=== PATIENT | male | born 1965 | race African-American/Black ===

== ENCOUNTER 2018-05-23 09:36 | Inpatient (IN) | payer OTHER ==
[2018-05-23 09:50] VITALS: BMI 24.6
--- NOTE | 2018-05-23 14:11 | HP ---
CIWA Score - CIWA Score Nausea/Vomitin-Mild Nausea/No Vomiting Muscle Tremors: 3 Anxiety: 3 Agitation: 2 Paroxysmal Sweats: 4-Forehead w/Sweat Beads Orientation: 2-Disoriented Date<2 days Tacttile Disturbances: 0-None Auditory Disturbances: 0-None Visual Disturbances: 0-None Headache: 0-None Present CIWA-Ar Total Score: 15 Admission ROS S - HPI Chief Complaint: Here for alcohol withdrawal. I need to detox. Allergies/Adverse Reactions: Allergies Allergy/AdvReac Type Severity Reaction Status Date / Time mayonnaise Allergy Verified 05/23/18 12:35 No Known Drug Allergies Allergy Verified 05/23/18 12:35 Seafood Allergy Uncoded 05/23/18 12:35 History of Present Illness: 52 yom w/ hx alcohol use since age 12. Currently drinks 6-16 oz beers daily and 3 x/wk 1/2 pt vodka. Hx. HTN, depression, stress, asthma. Non-compliant w/ medications. Longest period of time of sobriety was 7 years. Drinking continuously now for past 2 years. Walks w/ a cane for knee pain r/t recent fall. Abrasions on face r/t recent fall on 05/19/18. - Ebola screening Have you traveled outside of the country in the last 21 days: No Have you had contact with anyone from an Ebola affected area: No Have you been sick,other than usual withdrawal symptoms: No Do you have a fever: Yes - Review of Systems Constitutional: Chills, Diaphoresis EENT: reports: Nose Bleeding (Fall on 05/19/18 and fractured nose. No nose bleed at this time.), Dental Problems (Poor teeth. Front tooth pain r/t fall. Able to chew and swallow w/o difficulty.), Other (States recently told had glaucoma. Called home and the eye drops are artificial tears.) Respiratory: reports: Other (Hx asthma - no exacerbation in over 1 year. States taking asthma inhaler daily.) Cardiac: reports: Chest Pain (Chest pain - intermittent unrelated to activity.) , Irregular Heart Rate (Heart beats fast and has chest pain w/ SOB. Rest and resolves on own.) GI: reports: Nausea (mild r/t withdrawal) : reports: No Symptoms Reported Musculoskeletal: reports: Joint Pain (Knee pain sharpt r/t to standing for long periods and recent fall. Pain is worse in mornings. Uses a cane.) Integumentary: reports: Lesions ((R) arm - seen and on mupirocin;), Other ( Facial abrasions r/t fall on 05/19/18. Seen in ER.) Neuro: reports: Tremors, Unsteady Gait Endocrine: reports: No Symptoms Reported Hematology: reports: No Symptoms Reported Psychiatric: reports: Agitated, Anxious, Depressed Other Systems: Reviewed and Negative Patient History - Patient Medical History Hx Asthma: Yes (ON MED) Hx Chronic Obstructive Pulmonary Disease (COPD): No Hx Cancer: No Hx Cardiac Disorders: Yes (IRREGULAR HR) Hx Congestive Heart Failure: No Hx Hypertension: Yes (ON MEDICATION, NON-COMPLIANT) Hx Hypercholesterolemia: No Hx Pacemaker: No HX Cerebrovascular Accident: No Hx Seizures: No Hx Dementia: No Hx Diabetes: No Hx Gastrointestinal Disorders: No Hx Liver Disease: Yes (has inflammed liver r/t alcohol use. ) Hx Genitourinary Disorders: No Hx Sexually Transmitted Disorders: No Hx Renal Disease (ESRD): No Hx Thyroid Disease: No Hx Human Immunodeficiency Virus (HIV): No Hx Hepatitis C: No Hx Depression: Yes (on meds. Denies suicide or violent ideation.) Hx Suicide Attempt: No Hx Bipolar Disorder: No Hx Schizophrenia: No - Patient Surgical History Past Surgical History: Yes Hx Neurologic Surgery: No Hx Cataract Extraction: No Hx Cardiac Surgery: No Hx Lung Surgery: No Hx Breast Surgery: No Hx Breast Biopsy: No Hx Abdominal Surgery: No Hx Appendectomy: No Hx Cholecystectomy: No Hx Genitourinary Surgery: No Hx Section: No Hx Orthopedic Surgery: Yes (Bone graft from (R) hip to (R) wrist) Anesthesia Reaction: Yes - PPD History Previous Implant?: Yes Documented Results: Negative w/proof PPD to be Administered?: Yes - Smoking Cessation Smoking history: Current every day smoker Have you smoked in the past 12 months: Yes Aproximately how many cigarettes per day: 7 Hx Chewing Tobacco Use: No Initiated information on smoking cessation: Yes 'Breaking Loose' booklet given: 05/23/18 - Substance & Tx. History Hx Alcohol Use: Yes Hx Substance Use: Yes Substance Use Type: Alcohol Hx Substance Use Treatment: Yes (detox and [facility] rehab) - Substances Abused Alcohol Route: Oral Frequency: Daily Amount used: 1 6 PACK OF BEER, 1/2 PINT OF VODKA Age of first use: 12 Date of Last Use: 05/23/18 Admission Physical Exam S - Vital Signs Vital Signs: Vital Signs - 24 hr 05/23/18 09:47 Temperature 98 F Pulse Rate 118 H Respiratory 19 Rate Blood Pressure 129/86 - Physical General Appearance: Yes: Mild Distress HEENTM: Yes: EOMI, Hearing grossly Normal, Normal Voice, MOHAN, Other ( Superficial abrasions on nose, cheek and forehead w/ new scabbing.) Respiratory: Yes: Chest Non-Tender, Lungs Clear, Normal Breath Sounds Neck: Yes: No masses,lesions,Nodules, Supple Breast: Yes: Breast Exam Deferred Cardiology: Yes: Regular Rhythm, S1, S2, Tachycardia (Denies chest pain/SOB) Abdominal: Yes: Normal Bowel Sounds, Non Tender, Soft Genitourinary: Yes: Within Normal Limits Back: Yes: Normal Inspection Musculoskeletal: Yes: Joint Stiffness ((R) knee), Other (Gait unsteady) Extremities: Yes: Normal Capillary Refill, Normal Inspection, Normal Range of Motion Neurological: Yes: lacquer sizer II-XII NML intact, Motor Strength 5/5 Integumentary: Yes: Other (small, paplular lesion (R) forearm.) Lymphatic: Yes: Within Normal Limits - Diagnostic (1) Alcohol dependence with uncomplicated withdrawal Current Visit: Yes Status: Acute (2) Abrasion of face and extremities Current Visit: Yes Status: Acute Qualifiers: Encounter type: subsequent encounter Laterality: unspecified laterality Qualified Code(s): S00.81XD - Abrasion of other part of head, subsequent encounter; S40.819D - Abrasion of unspecified upper arm, subsequent encounter; S80.819D - Abrasion, unspecified lower leg, subsequent encounter (3) Unsteady gait Current Visit: Yes Status: Chronic (4) Hypertension Current Visit: Yes Status: Acute Qualifiers: Hypertension type: essential hypertension Qualified Code(s): I10 - Essential (primary) hypertension (5) Asthma Current Visit: Yes Status: Chronic Qualifiers: Asthma severity: unspecified severity Asthma persistence: intermittent Asthma complication type: unspecified Qualified Code(s): J45.20 - Mild intermittent asthma, uncomplicated (6) Nicotine dependence Current Visit: Yes Status: Acute Qualifiers: Nicotine product type: cigarettes Substance use status: in withdrawal Qualified Code(s): F17.213 - Nicotine dependence, cigarettes, with withdrawal Cleared for Admission [facility] - Detox or Rehab [facility] Level of Care: Medically Managed Detox Regimen/Protocol: Librium [facility] Breath Alcohol Content Breath Alcohol Content: 0.227 Urine Drug Screen - Results Drug Screen Negative: No Urine Drug Screen Results: BZO-Benzodiazepines
[2018-05-23] MEDS ORDERED: P-EPHED 60MG/TRIPROLIDI 2.5MG TABLET PO PRN (14:22)
[2018-05-23] MEDS ORDERED: chlordiazePOXIDE HCL 25 MG CAPSULE PO PRN (14:22)
[2018-05-23] MEDS ORDERED: LOPERAMIDE HCL 2 MG CAPSULE PO PRN (14:22)
[2018-05-23] MEDS ORDERED: hydrOXYzine PAMOATE 50 MG CAPSULE (FP) PO PRN (14:22)
[2018-05-23] MEDS ORDERED: ACETAMINOPHEN 325 MG TABLET (FP) PO PRN (14:22)
[2018-05-23] MEDS ORDERED: MENTHOL/PHENOL 1 EACH UD MM PRN (14:22)
[2018-05-23] MEDS ORDERED: MAGNESIUM HYDROX 2400MG/30ML ORAL SUSPENSION 30 ML CUP PO PRN (14:22)
[2018-05-23] MEDS ORDERED: guaiFENesin/D-METHORPHAN HB 10 ML UNIT-DOSE CUPS PO PRN (14:22)
[2018-05-23] MEDS ORDERED: MAG HYDROX/AL HYDROX/SIMETH 30 ML UNIT-DOSE CUP PO PRN (14:22)
[2018-05-23] MEDS ORDERED: MAGNESIUM CITRATE 300 ML BOTTLE PO PRN (14:22)
[2018-05-23] MEDS ORDERED: NICOTINE POLACRILEX 2 MG GUM BC PRN (14:22)
[2018-05-23] MEDS ORDERED: ALBUTEROL SO4 0.083% IH SOL 2.5 MG/3 ML VIAL.NEB. NEB PRN (16:04)
[2018-05-23 19:00] LABS: URINE APPEARANCE CLEAR; URINE BILIRUBIN NEGATIVE (<2.0 mg/dL); URINE COLOR YELLOW; URINE GLUCOSE (UA) NEGATIVE (NEGATIVE); URINE KETONE NEGATIVE (NEGATIVE); URINE LEUK ESTERASE NEGATIVE (NEGATIVE); URINE NITRITE NEGATIVE (NEGATIVE)
[2018-05-23] MEDS ORDERED: MELATONIN 5 MG TABLETS PO PRN (22:00)
[2018-05-23 22:13] LABS: URINE PROTEIN 1+ (NEGATIVE)
[2018-05-23 22:18] LABS: EPI CELLS RARE /HPF (FEW)
[2018-05-23 22:19] LABS: URINE MUCUS RARE
[2018-05-24] MEDS: chlordiazePOXIDE HCL 25 MG CAPSULE PO SCH ×5 (06:00→22:28)
[2018-05-24] MEDS: BACITRACIN 15 GM TUBE TOPICAL OINTMENT TP SCH ×3 (08:44→22:31)
[2018-05-24] MEDS: MUPIROCIN 2% TOPICAL OINTMENT 22 GM TUBE TP SCH ×3 (08:44→22:29)
[2018-05-24] MEDS: THIAMINE HCL 100 MG TABLET (FP) PO SCH ×2 (08:45→22:30)
--- NOTE | 2018-05-24 09:05 | CONSULT ---
[facility] Psychiatric Consult - Data Date of interview: 05/24/18 Admission source: [facility] Identifying data: 52 yom w/ hx alcohol use since age 12. Currently drinks 6-16 oz beers daily and 3 x/wk 1/2 pt vodka. Hx. HTN, depression, stress, asthma. Non -compliant w/ medications. Longest period of time of sobriety was 7 years. Drinking continuously now for past 2 years. Walks w/ a cane for knee pain r/t recent fall. Abrasions on face r/t recent fall on 05/19/18. Substance Abuse History: Smoking history: Current every day smoker. Have you smoked in the past 12 months: Yes. Aproximately how many cigarettes per day: 7. Hx Chewing Tobacco Use: No. Initiated information on smoking cessation: Yes. 'Breaking Loose' booklet given: 05/23/18. - Substance & Tx. History. Hx Alcohol Use: Yes. Hx Substance Use: Yes. Substance Use Type: Alcohol. Hx Substance Use Treatment: Yes (detox and skilled nursing rehab). - Substances Abused. Alcohol. Route: Oral. Frequency: Daily. Amount used: 1 6 PACK OF BEER, 1 /2 PINT OF VODKA. Age of first use: 12. Date of Last Use: 05/23/18 Medical History: HTN, Asthma, Face abrasiomns. Psychiatric History: Patient reports history of deprssion and anxiety, reports taking prior to admission: Remeron 30mg po qhs Physical/Sexual Abuse/Trauma History: Denies Additional Comment: Remeron 30mg po qhs Mental Status Exam - Mental Status Exam Alert and Oriented to: Person Cognitive Function: Fair Patient Appearance: Unkempt Mood: Sad Affect: Flat Patient Behavior: Sedated Speech Pattern: Delayed Voice Loudness: Mildly Loud Thought Process: Goal Oriented Thought Disorder: Being Controlled Hallucinations: Denies Suicidal Ideation: Denies Homicidal Ideation: Denies Insight/Judgement: Fair Sleep: Difficulty falling asleep Appetite: Weight loss Muscle strength/Tone: Mild Hypotonicity Gait/Station: Shuffling Additional Comments: Remeron 30mg po qhs Psychiatric Findings - Problem List ([place] 1, 2,3) (1) Drug-induced mood disorder Current Visit: Yes Status: Acute (2) Alcohol dependence with uncomplicated withdrawal Current Visit: Yes Status: Acute (3) Nicotine dependence Current Visit: Yes Status: Acute Qualifiers: Nicotine product type: cigarettes Substance use status: in withdrawal Qualified Code(s): F17.213 - Nicotine dependence, cigarettes, with withdrawal - Initial Treatment Plan Initial Treatment Plan: Remeron 30mg po qhs
[2018-05-24 09:51] LABS: HEMATOCRIT 35.1 % (35.4-49); HEMOGLOBIN 11.7 GM/dL (11.7-16.9); MCH 32.4 pg (25.7-33.7); MCHC 33.4 g/dl (32.0-35.9); MEAN PLT VOLUME 8.5 fl (7.5-11.1); PLATELET COUNT 49 K/MM3 (134-434); RBC 3.62 M/mm3 (4.00-5.60); RDW 15.4 % (11.9-15.9); WHITE BLOOD COUNT 4.1 K/mm3 (4.0-10.0)
[2018-05-24] MEDS ORDERED: PATIENT'S OWN MEDICATION (NON-FORMULARY) (Losartan/Hydrochlorothiazide [Losartan-Hctz 100- PO SCH (10:00)
[2018-05-24 10:19] LABS: CHLORIDE 102 mmol/L (98-107); POTASSIUM 3.5 mmol/L (3.5-5.1); SODIUM 140 mmol/L (136-145)
[2018-05-24 10:40] LABS: ALBUMIN 3.2 g/dl (3.4-5.0); ALK PHOS 109 U/L (45-117); ANION GAP 10 (8-16); BILIRUBIN,TOTAL 0.7 mg/dL (0.2-1.0); BLOOD UREA NITROGEN 7 mg/dL (7-18); CALCIUM 8.4 mg/dL (8.5-10.1); CO2 28 mmol/L (21-32); CREATININE 0.7 mg/dL (0.7-1.3); GLUCOSE,RANDOM 79 mg/dL (74-106); SGOT/AST 64 U/L (15-37); SGPT/ALT 48 U/L (12-78); TOT PROT 6.7 g/dl (6.4-8.2)
[2018-05-24] MEDS: amLODIPine BESYLATE 10 MG TABLET (FP) PO SCH (10:52)
[2018-05-24] MEDS: ASPIRIN COATED 81 MG TABLET.EC PO SCH (10:52)
[2018-05-24] MEDS: PRENATAL VITAMINS W/ FOLIC ACID TABLET (FP) PO SCH (10:52)
[2018-05-24] MEDS: MOMETASONE FUROATE 220 MCG/IH INHALER IH SCH (10:52)
[2018-05-24] MEDS: NICOTINE 14 MG/24 HOURS TOPICAL PATCH TD SCH (10:52)
[2018-05-24] MEDS: LOSARTAN 50MG/HCTZ 12.5MG 1 TAB (FP) PO SCH (11:54)
--- NOTE | 2018-05-24 14:46 | PN ---
S CIWA - CIWA Score Nausea/Vomitin Muscle Tremors: 3 Anxiety: 3 Agitation: 3 Paroxysmal Sweats: 1-Minimal Palms Moist Orientation: 0-Oriented Tacttile Disturbances: 1-Very Mild Itch/Numbness Auditory Disturbances: 1-Very Mild Visual Disturbances: 0-None Headache: 2-Mild CIWA-Ar Total Score: 17 S Progress Note (SOAP) Subjective: ALERT,IRRITABLE,ANXIOUS,INTERRUPTED SLEEP,TREMOR,TREMOR Objective: 05/24/18 14:43 Vital Signs Temperature 98.2 F 05/24/18 11:19 Pulse Rate 90 05/24/18 11:30 Respiratory Rate 20 05/24/18 11:30 Blood Pressure 136/88 05/24/18 11:19 O2 Sat by Pulse Oximetry (%) EKG NSR,NORMAL ECG Q 366/472 NO CHEST PAIN,NO SOB,NO DIZZINESS Laboratory Last Values WBC 4.1 K/mm3 (4.0-10.0) 05/24/18 07:30 RBC 3.62 M/mm3 (4.00-5.60) L 05/24/18 07:30 Hgb 11.7 GM/dL (11.7-16.9) 05/24/18 07:30 Hct 35.1 % (35.4-49) L 05/24/18 07:30 MCV 97.0 fl (80-96) H 05/24/18 07:30 MCH 32.4 pg (25.7-33.7) 05/24/18 07:30 MCHC 33.4 g/dl (32.0-35.9) 05/24/18 07:30 RDW 15.4 % (11.9-15.9) 05/24/18 07:30 Plt Count 49 K/MM3 (134-434) L 05/24/18 07:30 MPV 8.5 fl (7.5-11.1) 05/24/18 07:30 Sodium 140 mmol/L (136-145) 05/24/18 07:30 Potassium 3.5 mmol/L (3.5-5.1) 05/24/18 07:30 Chloride 102 mmol/L (98-107) 05/24/18 07:30 Carbon Dioxide 28 mmol/L (21-32) 05/24/18 07:30 Anion Gap 10 (8-16) 05/24/18 07:30 BUN 7 mg/dL (7-18) 05/24/18 07:30 Creatinine 0.7 mg/dL (0.7-1.3) 05/24/18 07:30 Creat Clearance w eGFR > 60 (>60) 05/24/18 07:30 Random Glucose 79 mg/dL (74-106) 05/24/18 07:30 Calcium 8.4 mg/dL (8.5-10.1) L 05/24/18 07:30 Total Bilirubin 0.7 mg/dL (0.2-1.0) 05/24/18 07:30 AST 64 U/L (15-37) H 05/24/18 07:30 ALT 48 U/L (12-78) 05/24/18 07:30 Alkaline Phosphatase 109 U/L (45-117) 05/24/18 07:30 Total Protein 6.7 g/dl (6.4-8.2) 05/24/18 07:30 Albumin 3.2 g/dl (3.4-5.0) L 05/24/18 07:30 Urine Color Yellow 05/23/18 18:00 Urine Appearance Clear 05/23/18 18:00 Urine pH 6.0 (5.0-8.0) 05/23/18 18:00 Ur Specific [place] 1.010 (1.001-1.035) 05/23/18 18:00 Urine Protein 1+ (NEGATIVE) H 05/23/18 18:00 Urine Glucose (UA) Negative (NEGATIVE) 05/23/18 18:00 Urine Ketones Negative (NEGATIVE) 05/23/18 18:00 Urine Blood Negative (NEGATIVE) 05/23/18 18:00 Urine Nitrite Negative (NEGATIVE) 05/23/18 18:00 Urine Bilirubin Negative (<2.0 mg/dL) 05/23/18 18:00 Urine Urobilinogen 2.0 mg/dL (0.2-1.0) 05/23/18 18:00 Ur Leukocyte Esterase Negative (NEGATIVE) 05/23/18 18:00 Urine WBC (Auto) 1 /hpf (3-5) 05/23/18 18:00 Urine RBC (Auto) <1 /hpf (0-3) 05/23/18 18:00 Ur Epithelial Cells Rare /HPF (FEW) 05/23/18 18:00 Urine Mucus Rare 05/23/18 18:00 RPR Titer Nonreactive (NONREACTIVE) 05/24/18 07:30 HIV 1&2 Antibody Screen Negative 05/24/18 07:30 HIV P24 Antigen Negative 05/24/18 07:30 Assessment: 05/24/18 14:45 WITHDRAWAL SYMPTOM Plan: CONTINUE DETOX
[2018-05-24] MEDS ORDERED: cloNIDine HCL 0.1 MG TABLET PO ONE (17:30)
[2018-05-24] MEDS: IBUPROFEN 400 MG TABLET (FP) PO PRN (19:26)
--- NOTE | 2018-05-24 19:42 | PN ---
[facility] Progress Note Note: Patient refusing to take medications. Hx HTN and B/P elevated. Vital Signs Period Temp Pulse Resp BP Sys/Silver Pulse Ox Last 24 Hr 98.1 F-98.4 F 80-121 18-20 130-161/80-102 172/113. Given stat dose of catapress 0.2 mg earlier and b/p now decreased. Patient is thinks today is and insists, despite attempts to reorient. [place] [facility] [place] steady. Pupils equal and reactive to light. Gait steady w/o assistive devices. Denies nausea or vomiting. Laboratory Last Values WBC 4.1 K/mm3 (4.0-10.0) 05/24/18 07:30 RBC 3.62 M/mm3 (4.00-5.60) L 05/24/18 07:30 Hgb 11.7 GM/dL (11.7-16.9) 05/24/18 07:30 Hct 35.1 % (35.4-49) L 05/24/18 07:30 MCV 97.0 fl (80-96) H 05/24/18 07:30 MCH 32.4 pg (25.7-33.7) 05/24/18 07:30 MCHC 33.4 g/dl (32.0-35.9) 05/24/18 07:30 RDW 15.4 % (11.9-15.9) 05/24/18 07:30 Plt Count 49 K/MM3 (134-434) L 05/24/18 07:30 MPV 8.5 fl (7.5-11.1) 05/24/18 07:30 Sodium 140 mmol/L (136-145) 05/24/18 07:30 Potassium 3.5 mmol/L (3.5-5.1) 05/24/18 07:30 Chloride 102 mmol/L (98-107) 05/24/18 07:30 Carbon Dioxide 28 mmol/L (21-32) 05/24/18 07:30 Anion Gap 10 (8-16) 05/24/18 07:30 BUN 7 mg/dL (7-18) 05/24/18 07:30 Creatinine 0.7 mg/dL (0.7-1.3) 05/24/18 07:30 Creat Clearance w eGFR > 60 (>60) 05/24/18 07:30 Random Glucose 79 mg/dL (74-106) 05/24/18 07:30 Calcium 8.4 mg/dL (8.5-10.1) L 05/24/18 07:30 Total Bilirubin 0.7 mg/dL (0.2-1.0) 05/24/18 07:30 AST 64 U/L (15-37) H 05/24/18 07:30 ALT 48 U/L (12-78) 05/24/18 07:30 Alkaline Phosphatase 109 U/L (45-117) 05/24/18 07:30 Total Protein 6.7 g/dl (6.4-8.2) 05/24/18 07:30 Albumin 3.2 g/dl (3.4-5.0) L 05/24/18 07:30 Urine Color Yellow 05/23/18 18:00 Urine Appearance Clear 05/23/18 18:00 Urine pH 6.0 (5.0-8.0) 05/23/18 18:00 Ur Specific [place] 1.010 (1.001-1.035) 05/23/18 18:00 Urine Protein 1+ (NEGATIVE) H 05/23/18 18:00 Urine Glucose (UA) Negative (NEGATIVE) 05/23/18 18:00 Urine Ketones Negative (NEGATIVE) 05/23/18 18:00 Urine Blood Negative (NEGATIVE) 05/23/18 18:00 Urine Nitrite Negative (NEGATIVE) 05/23/18 18:00 Urine Bilirubin Negative (<2.0 mg/dL) 05/23/18 18:00 Urine Urobilinogen 2.0 mg/dL (0.2-1.0) 05/23/18 18:00 Ur Leukocyte Esterase Negative (NEGATIVE) 05/23/18 18:00 Urine WBC (Auto) 1 /hpf (3-5) 05/23/18 18:00 Urine RBC (Auto) <1 /hpf (0-3) 05/23/18 18:00 Ur Epithelial Cells Rare /HPF (FEW) 05/23/18 18:00 Urine Mucus Rare 05/23/18 18:00 RPR Titer Nonreactive (NONREACTIVE) 05/24/18 07:30 HIV 1&2 Antibody Screen Negative 05/24/18 07:30 HIV P24 Antigen Negative 05/24/18 07:30 Refused to go to ER. States will leave instead. Encouraged to take medications as prescribed and agrees to do so, at this time. Will increase monitoring to q 1/2 hr. Blood ammonia level ordered. Monitoring will continue.
--- NOTE | 2018-05-24 22:12 | EKG ---
Test Reason : Blood Pressure : / mmHG Vent. Rate : 100 BPM Atrial Rate : 100 BPM P-R Int : 132 ms QRS Dur : 088 ms QT Int : 366 ms P-R-T Axes : 078 061 054 degrees QTc Int : 472 ms NORMAL SINUS RHYTHM NORMAL ECG NO PREVIOUS ECGS AVAILABLE Confirmed by VIDYA DONATO, DAKOTA ([id number]) on 05/24/2018 10:11:55 PM Referred By: Carolyn Leggett Confirmed By:DAKOTA DASILVA MD
[2018-05-24] MEDS: MIRTAZAPINE 30 MG TABLET (FP) PO SCH (22:29)
[2018-05-25] MEDS: chlordiazePOXIDE HCL 25 MG CAPSULE PO SCH ×2 (05:27→10:34)
[2018-05-25] MEDS: ASPIRIN COATED 81 MG TABLET.EC PO SCH (10:34)
[2018-05-25] MEDS: PRENATAL VITAMINS W/ FOLIC ACID TABLET (FP) PO SCH (10:34)
[2018-05-25] MEDS: amLODIPine BESYLATE 10 MG TABLET (FP) PO SCH (10:34)
[2018-05-25] MEDS: NICOTINE 14 MG/24 HOURS TOPICAL PATCH TD SCH (10:35)
[2018-05-25] MEDS: MUPIROCIN 2% TOPICAL OINTMENT 22 GM TUBE TP SCH ×2 (10:36→21:17)
[2018-05-25] MEDS: LOSARTAN 50MG/HCTZ 12.5MG 1 TAB (FP) PO SCH (10:36)
[2018-05-25] MEDS: IBUPROFEN 400 MG TABLET (FP) PO PRN (10:39)
[2018-05-25] MEDS: BACITRACIN 15 GM TUBE TOPICAL OINTMENT TP SCH ×2 (10:40→21:17)
--- NOTE | 2018-05-25 10:56 | PN ---
S CIWA - CIWA Score Nausea/Vomitin Muscle Tremors: 3 Anxiety: 3 Agitation: 3 Paroxysmal Sweats: 1-Minimal Palms Moist Orientation: 0-Oriented Tacttile Disturbances: 1-Very Mild Itch/Numbness Auditory Disturbances: 1-Very Mild Visual Disturbances: 0-None Headache: 2-Mild CIWA-Ar Total Score: 17 [facility] Progress Note (SOAP) Subjective: ALERT,IRRITABLE,ANXIOUS,INTERRUPTED SLEEP,TREMOR Objective: 05/25/18 10:53 Vital Signs Temperature 97.9 F 05/25/18 08:44 Pulse Rate 103 H 05/25/18 08:44 Respiratory Rate 18 05/25/18 08:44 Blood Pressure 140/79 05/25/18 08:44 O2 Sat by Pulse Oximetry (%) Laboratory Last Values WBC 4.1 K/mm3 (4.0-10.0) 05/24/18 07:30 RBC 3.62 M/mm3 (4.00-5.60) L 05/24/18 07:30 Hgb 11.7 GM/dL (11.7-16.9) 05/24/18 07:30 Hct 35.1 % (35.4-49) L 05/24/18 07:30 MCV 97.0 fl (80-96) H 05/24/18 07:30 MCH 32.4 pg (25.7-33.7) 05/24/18 07:30 MCHC 33.4 g/dl (32.0-35.9) 05/24/18 07:30 RDW 15.4 % (11.9-15.9) 05/24/18 07:30 Plt Count 49 K/MM3 (134-434) L 05/24/18 07:30 MPV 8.5 fl (7.5-11.1) 05/24/18 07:30 Sodium 140 mmol/L (136-145) 05/24/18 07:30 Potassium 3.5 mmol/L (3.5-5.1) 05/24/18 07:30 Chloride 102 mmol/L (98-107) 05/24/18 07:30 Carbon Dioxide 28 mmol/L (21-32) 05/24/18 07:30 Anion Gap 10 (8-16) 05/24/18 07:30 BUN 7 mg/dL (7-18) 05/24/18 07:30 Creatinine 0.7 mg/dL (0.7-1.3) 05/24/18 07:30 Creat Clearance w eGFR > 60 (>60) 05/24/18 07:30 Random Glucose 79 mg/dL (74-106) 05/24/18 07:30 Calcium 8.4 mg/dL (8.5-10.1) L 05/24/18 07:30 Total Bilirubin 0.7 mg/dL (0.2-1.0) 05/24/18 07:30 AST 64 U/L (15-37) H 05/24/18 07:30 ALT 48 U/L (12-78) 05/24/18 07:30 Alkaline Phosphatase 109 U/L (45-117) 05/24/18 07:30 Total Protein 6.7 g/dl (6.4-8.2) 05/24/18 07:30 Albumin 3.2 g/dl (3.4-5.0) L 05/24/18 07:30 Urine Color Yellow 05/23/18 18:00 Urine Appearance Clear 05/23/18 18:00 Urine pH 6.0 (5.0-8.0) 05/23/18 18:00 Ur Specific [place] 1.010 (1.001-1.035) 05/23/18 18:00 Urine Protein 1+ (NEGATIVE) H 05/23/18 18:00 Urine Glucose (UA) Negative (NEGATIVE) 05/23/18 18:00 Urine Ketones Negative (NEGATIVE) 05/23/18 18:00 Urine Blood Negative (NEGATIVE) 05/23/18 18:00 Urine Nitrite Negative (NEGATIVE) 05/23/18 18:00 Urine Bilirubin Negative (<2.0 mg/dL) 05/23/18 18:00 Urine Urobilinogen 2.0 mg/dL (0.2-1.0) 05/23/18 18:00 Ur Leukocyte Esterase Negative (NEGATIVE) 05/23/18 18:00 Urine WBC (Auto) 1 /hpf (3-5) 05/23/18 18:00 Urine RBC (Auto) <1 /hpf (0-3) 05/23/18 18:00 Ur Epithelial Cells Rare /HPF (FEW) 05/23/18 18:00 Urine Mucus Rare 05/23/18 18:00 RPR Titer Nonreactive (NONREACTIVE) 05/24/18 07:30 HIV 1&2 Antibody Screen Negative 05/24/18 07:30 HIV P24 Antigen Negative 05/24/18 07:30 Assessment: 05/25/18 10:55 WITHDRAWAL SYMPTOM Plan: CONTINUE DETOX
[2018-05-25] MEDS: MOMETASONE FUROATE 220 MCG/IH INHALER IH SCH (12:00)
--- NOTE | 2018-05-25 12:34 | PN ---
[facility] Progress Note Note: Laboratory Results - last 24 hr 05/25/18 07:00 Ammonia 54.64 H TO GIVE LACTULOSE 20 GRAMS PO BID CONTINUE DETOX
[2018-05-25 13:44] VITALS: TEMP 98.1
[2018-05-25] MEDS: LACTULOSE 20 GM/30 ML UDC (FOR ORAL USE ONLY) PO SCH ×2 (15:04→21:16)
[2018-05-25] MEDS: chlordiazePOXIDE 5 MG CAPSULE PO SCH ×2 (17:55→22:46)
[2018-05-25] MEDS: MIRTAZAPINE 30 MG TABLET (FP) PO SCH (21:13)
[2018-05-25] MEDS: THIAMINE HCL 100 MG TABLET (FP) PO SCH (21:13)
[2018-05-26] MEDS: chlordiazePOXIDE 5 MG CAPSULE PO SCH (05:22)
[2018-05-26] MEDS: LACTULOSE 20 GM/30 ML UDC (FOR ORAL USE ONLY) PO SCH (05:22)
[2018-05-26 07:17] VITALS: BP 136/85; PULSE 102
--- NOTE | 2018-05-26 07:29 | PN ---
[facility] Progress Note Note: SEEN THIS MORNING FOR REPORTED CONFUSION DUE TO ELEVATED AMMONIA LEVELS. INFORMED CLIENT ATTEMPTED TO ELOPE FROM UNIT. REQUESTING TO LEAVE. EXHIBITING CONFUSION TO PLACE, TIME, WANDERING HALLWAYS. HE WANTS TO LEAVE BECAUSE OF HIS SON'S BALL GAME TODAY. CLIENT SEEN STANDING IN THE DOOR WAY OF HIS ROOM WOULD LIKE TO CALL HIS SON AND HAVE HIS AMMONIA LEVEL REPEATED.. AWAKE/ALERT Abnormal Lab Results 05/25/18 07:00 Ammonia 54.64 H Laboratory Tests 05/23/18 05/24/18 05/24/18 18:00 07:30 07:30 WBC 4.1 RBC 3.62 L Hgb 11.7 Hct 35.1 L MCV 97.0 H MCH 32.4 MCHC 33.4 RDW 15.4 Plt Count 49 L MPV 8.5 Sodium Potassium Chloride Carbon Dioxide Anion Gap BUN Creatinine Creat Clearance w eGFR Random Glucose Calcium Total Bilirubin AST ALT Alkaline Phosphatase [place] Total Protein Albumin Urine Color Yellow Urine Appearance Clear Urine pH 6.0 Ur Specific [place] 1.010 Urine Protein 1+ H Urine Glucose (UA) Negative Urine Ketones Negative Urine Blood Negative Urine Nitrite Negative Urine Bilirubin Negative Urine Urobilinogen 2.0 Ur Leukocyte Esterase Negative Urine WBC (Auto) 1 Urine RBC (Auto) <1 Ur Epithelial Cells Rare Urine Mucus Rare RPR Titer HIV 1&2 Antibody Screen Negative HIV P24 Antigen Negative 05/24/18 05/24/18 05/25/18 07:30 07:30 07:00 WBC RBC Hgb Hct MCV MCH MCHC RDW Plt Count MPV Sodium 140 Potassium 3.5 Chloride 102 Carbon Dioxide 28 Anion Gap 10 BUN 7 Creatinine 0.7 Creat Clearance w eGFR > 60 Random Glucose 79 Calcium 8.4 L Total Bilirubin 0.7 AST 64 H ALT 48 Alkaline Phosphatase 109 Ammonia 54.64 H Total Protein 6.7 Albumin 3.2 L Urine Color Urine Appearance Urine pH Ur Specific [place] Urine Protein Urine Glucose (UA) Urine Ketones Urine Blood Urine Nitrite Urine Bilirubin Urine Urobilinogen Ur Leukocyte Esterase Urine WBC (Auto) Urine RBC (Auto) Ur Epithelial Cells Urine Mucus RPR Titer Nonreactive HIV 1&2 Antibody Screen HIV P24 Antigen Vital Signs 05/26/18 07:16 Temperature 98.1 F Pulse Rate 102 H Respiratory 20 Rate Blood Pressure 136/85 STILL CONFUSED TO DATE AND TIME AND PLACE. BUT KNOWS WHY HE IS HERE. CLIENT WAS REORIENTED. SPOKE WITH CLIENT DISCUSSED WITH HIM ABOUT HIS AMMONIA LEVEL HE AGREES TO STAY. CONTINUE TO MONITOR CLOSELY
--- NOTE | 2018-05-26 08:29 | PN ---
S Progress Note (SOAP) Subjective: ALERT,ORIENTEDX3,NO CONFUSION,NO COMPLAINT,STATED HE HAS TO LEAVE FOR HIS SON WHO IS PLAYING [employer]ION[employer] FOOTBALL TODAY Objective: 05/26/18 08:25 Vital Signs Temperature 98.1 F 05/26/18 07:16 Pulse Rate 102 H 05/26/18 07:16 Respiratory Rate 20 05/26/18 07:16 Blood Pressure 136/85 05/26/18 07:16 O2 Sat by Pulse Oximetry (%) REPEAT AMMONIA LEVEL IS PENDING Assessment: 05/26/18 08:26 WITHDRAWAL SYMPTOM Plan: CONTINUE DETOX,LACTULOSE 20 GRAMS PO TID FOR 10 DAYS
--- NOTE | 2018-05-26 08:33 | DS ---
[facility] Detox Discharge Summary Admission Date: 05/23/18 Discharge Date: 05/26/18 - History Present History: Alcohol Dependence Additional Comments: ALERT,ORIENTED X 3,PATIENT WOULD LIKE TO LEAVE FOR HIS SON FOOTBALL GAME TODAY, HAS HIGH AMMONIA LEVEL,ALL ATTEMPTS TO CONVINCE PATIENT TO STAY WITH NO AVAIL, SIGNED RELEASE AMA,HAS ALL MEDICATION AT HOME,TO CONTINUE LACTULOSE 20 GRAMS PO TID FOR 10 DAYS, FOLLOW UP WITH HIS PMD Pertinent Past History: ASTHMA HYPERTENSION ASTHMA NICOTINE DEPENDENCE - Physical Exam Results Vital Signs: Vital Signs Temperature 98.1 F 05/26/18 07:16 Pulse Rate 102 H 05/26/18 07:16 Respiratory Rate 20 05/26/18 07:16 Blood Pressure 136/85 05/26/18 07:16 O2 Sat by Pulse Oximetry (%) Pertinent Admission Physical Exam Findings: WITHDRAWAL SIGNS AND SYMPTOM Vital Signs Temperature 98.1 F 05/26/18 07:16 Pulse Rate 102 H 05/26/18 07:16 Respiratory Rate 20 05/26/18 07:16 Blood Pressure 136/85 05/26/18 07:16 O2 Sat by Pulse Oximetry (%) Laboratory Last Values WBC 4.1 K/mm3 (4.0-10.0) 05/24/18 07:30 RBC 3.62 M/mm3 (4.00-5.60) L 05/24/18 07:30 Hgb 11.7 GM/dL (11.7-16.9) 05/24/18 07:30 Hct 35.1 % (35.4-49) L 05/24/18 07:30 MCV 97.0 fl (80-96) H 05/24/18 07:30 MCH 32.4 pg (25.7-33.7) 05/24/18 07:30 MCHC 33.4 g/dl (32.0-35.9) 05/24/18 07:30 RDW 15.4 % (11.9-15.9) 05/24/18 07:30 Plt Count 49 K/MM3 (134-434) L 05/24/18 07:30 MPV 8.5 fl (7.5-11.1) 05/24/18 07:30 Sodium 140 mmol/L (136-145) 05/24/18 07:30 Potassium 3.5 mmol/L (3.5-5.1) 05/24/18 07:30 Chloride 102 mmol/L (98-107) 05/24/18 07:30 Carbon Dioxide 28 mmol/L (21-32) 05/24/18 07:30 Anion Gap 10 (8-16) 05/24/18 07:30 BUN 7 mg/dL (7-18) 05/24/18 07:30 Creatinine 0.7 mg/dL (0.7-1.3) 05/24/18 07:30 Creat Clearance w eGFR > 60 (>60) 05/24/18 07:30 Random Glucose 79 mg/dL (74-106) 05/24/18 07:30 Calcium 8.4 mg/dL (8.5-10.1) L 05/24/18 07:30 Total Bilirubin 0.7 mg/dL (0.2-1.0) 05/24/18 07:30 AST 64 U/L (15-37) H 05/24/18 07:30 ALT 48 U/L (12-78) 05/24/18 07:30 Alkaline Phosphatase 109 U/L (45-117) 05/24/18 07:30 Ammonia 54.64 umol/L (11-32) H 05/25/18 07:00 Total Protein 6.7 g/dl (6.4-8.2) 05/24/18 07:30 Albumin 3.2 g/dl (3.4-5.0) L 05/24/18 07:30 Urine Color Yellow 05/23/18 18:00 Urine Appearance Clear 05/23/18 18:00 Urine pH 6.0 (5.0-8.0) 05/23/18 18:00 Ur Specific [place] 1.010 (1.001-1.035) 05/23/18 18:00 Urine Protein 1+ (NEGATIVE) H 05/23/18 18:00 Urine Glucose (UA) Negative (NEGATIVE) 05/23/18 18:00 Urine Ketones Negative (NEGATIVE) 05/23/18 18:00 Urine Blood Negative (NEGATIVE) 05/23/18 18:00 Urine Nitrite Negative (NEGATIVE) 05/23/18 18:00 Urine Bilirubin Negative (<2.0 mg/dL) 05/23/18 18:00 Urine Urobilinogen 2.0 mg/dL (0.2-1.0) 05/23/18 18:00 Ur Leukocyte Esterase Negative (NEGATIVE) 05/23/18 18:00 Urine WBC (Auto) 1 /hpf (3-5) 05/23/18 18:00 Urine RBC (Auto) <1 /hpf (0-3) 05/23/18 18:00 Ur Epithelial Cells Rare /HPF (FEW) 05/23/18 18:00 Urine Mucus Rare 05/23/18 18:00 RPR Titer Nonreactive (NONREACTIVE) 05/24/18 07:30 HIV 1&2 Antibody Screen Negative 05/24/18 07:30 HIV P24 Antigen Negative 05/24/18 07:30 - Treatment Patient has Accepted a Rehab Referral to: DECLINED - Medication Discharge Medications: Ambulatory Orders Amlodipine Besylate 10 mg PO DAILY 05/23/18 Aspirin [Ecotrin] 81 mg PO DAILY 05/23/18 Cephalexin [Keflex] 500 mg PO TID 05/23/18 Chlorhexidine Gluconate 473 ml MM BID 05/23/18 Gabapentin 300 mg PO TID 05/23/18 Ibuprofen 600 mg PO TID 05/23/18 Losartan/Hydrochlorothiazide [Losartan-Hctz 100-25 mg Tab] 1 tab PO DAILY Mometasone Furoate [Asmanex 220Mcg -] 1 inh IH DAILY 05/23/18 Mupirocin Ointment [Bactroban 2% Ointment -] 1 applic TP BID 05/23/18 Sulfamethoxazole/Trimethoprim [Sulfamethoxazole-Tmp Ds Tablet] 1 each PO BID Triamcinolone 0.1% Cream [Aristocort 0.1% Cream -] 1 applic AD DAILY 05/23/18 Mirtazapine 30 mg PO HS #30 tablet 05/24/18 - Diagnosis (1) Alcohol dependence with uncomplicated withdrawal Current Visit: Yes Status: Acute (2) Abrasion of face and extremities Current Visit: Yes Status: Acute Qualifiers: Encounter type: subsequent encounter Laterality: unspecified laterality Qualified Code(s): S00.81XD - Abrasion of other part of head, subsequent encounter; S40.819D - Abrasion of unspecified upper arm, subsequent encounter; S80.819D - Abrasion, unspecified lower leg, subsequent encounter (3) Hypertension Current Visit: Yes Status: Acute Qualifiers: Hypertension type: essential hypertension Qualified Code(s): I10 - Essential (primary) hypertension (4) Nicotine dependence Current Visit: Yes Status: Acute Qualifiers: Nicotine product type: cigarettes Substance use status: in withdrawal Qualified Code(s): F17.213 - Nicotine dependence, cigarettes, with withdrawal (5) Asthma Current Visit: Yes Status: Chronic Qualifiers: Asthma severity: unspecified severity Asthma persistence: intermittent Asthma complication type: unspecified Qualified Code(s): J45.20 - Mild intermittent asthma, uncomplicated (6) Increased ammonia level Current Visit: Yes Status: Acute - AMA Did Patient Leave Against Medical Advice: Yes
[2018-05-26] MEDS: amLODIPine BESYLATE 10 MG TABLET (FP) PO SCH (09:28)
[2018-05-26] MEDS: LOSARTAN 50MG/HCTZ 12.5MG 1 TAB (FP) PO SCH (09:28)
[2018-05-26] MEDS: ASPIRIN COATED 81 MG TABLET.EC PO SCH (09:28)
[2018-05-26] MEDS: PRENATAL VITAMINS W/ FOLIC ACID TABLET (FP) PO SCH (09:28)
[2018-05-26] MEDS: MUPIROCIN 2% TOPICAL OINTMENT 22 GM TUBE TP SCH (09:29)
[2018-05-26] MEDS: IBUPROFEN 400 MG TABLET (FP) PO PRN (09:30)
[2018-05-26] MEDS ORDERED: chlordiazePOXIDE HCL 10 MG CAPSULE PO SCH (17:00)
== END 2018-05-26 09:30 | disposition left against medical advice (07) | DRG 770 ==
LOC: YASAS 09:36 → Y6N 14:52
PROVIDERS: ADMIT Family Medicine Addiction Medicine; ATTEND Family Medicine Addiction Medicine
PROC: HZ2ZZZZ Detoxification Services for Substance Abuse Treatment (ICD-10-PCS; principal; 2018-05-23)
DX: F10.230 Alcohol dependence with withdrawal, uncomplicated (principal); F17.213 Nicotine dependence, cigarettes, with withdrawal; F19.24 Other psychoactive substance dependence with psychoactive substance-induced mood disorder; F32.9 Major depressive disorder, single episode, unspecified; I10 Essential (primary) hypertension; S00.81XD Abrasion of other part of head, subsequent encounter; S80.819D Abrasion, unspecified lower leg, subsequent encounter; S40.81 Abrasion of upper arm; R26.89 Other abnormalities of gait and mobility; Z99.89 Dependence on other enabling machines and devices; Z91.81 History of falling; Z79.82 Long term (current) use of aspirin; Z91.018 Allergy to other foods
CPT/HCPCS: 36415; 80053; 81003; 81015; 82140; 85027; 86593; 87389; 93005; 93010; J0735

== ENCOUNTER 2020-07-06 10:20 | Inpatient (IN) | payer OTHER ==
--- NOTE | 2020-07-06 10:12 | BHS.RME ---
Substance Use & Tx History - Substance Use History Alcohol Substance amount: 1 pint vodka and 1.5 six packs beer Frequency of use: Daily Substance route: Oral Date of Last Use: 07/05/20 Nicotine Substance amount: 1 pack Frequency of use: Daily Substance route: Smoking Date of Last Use: 07/06/20 Physical/Psych/Mental Status - Behavior General Behavior: Decreased activity Eye Contact: Normal - Cooperativeness Cooperativeness: Cooperative - Thinking Thought Processes: Tight, Logical, Goal Directed - Physical Health Problems Is patient presently having any pain?: No Does patient presently have any injuries (include location): No Does patient currently have a fever: No Is patient : No CIWA Nausea/Vomitin-Mild Nausea/No Vomiting Muscle Tremors: 1-None Visible, but [place] Anxiety: 0-No Anxiety, at Ease Agitation: 0-Normal Activity Paroxysmal Sweats: No Perspiration Orientation: 0-Oriented Tacttile Disturbances: 0-None Auditory Disturbances: 0-None Visual Disturbances: 0-None Headache: 1-Very Mild CIWA-Ar Total Score: 3
--- NOTE | 2020-07-06 11:14 | HP ---
CIWA Score Nausea/Vomitin-Mild Nausea/No Vomiting Muscle Tremors: 3 Anxiety: 3 Agitation: 2 Paroxysmal Sweats: 1-Minimal Palms Moist (not in full withdrawals yet due to drinking earlier this morning prior to admission) Orientation: 0-Oriented Tacttile Disturbances: 0-None Auditory Disturbances: 0-None Visual Disturbances: 0-None Headache: 1-Very Mild CIWA-Ar Total Score: 11 - Admission Criteria OASAS Guidelines: Admission for Medically Managed Detox: Requires at least one of the followin. CIWA greater than 12 2. Seizures within the past 24 hours 3. Delirium tremens within the past 24 hours 4. Hallucinations within the past 24 hours 5. Acute intervention needed for co occurring medical disorder 6. Acute intervention needed for co occurring psychiatric disorder 7. Severe withdrawal that cannot be handled at a lower level of care (continued vomiting, continued diarrhea, abnormal vital signs) requiring intravenous medication and/or fluids 8. 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 Nicotine Substance amount: 1 pack Frequency of use: Daily Substance route: Smoking Date of Last Use: 07/06/20 PMH: CAD+ Psurg: Right hip and R wrist fx Psych: None Lives in [facility] [place] - own with fiance No legal problems only ZAKIA:=0.298 CIWA initially 3 now 12 History Source: Patient Limitations to Obtaining History: No Limitations - Past Medical History Cardiovascular: Yes: CAD - Past Surgical History Additional Past Surgical History: Right Hip and Righ wrist Sx - Smoking History Smoking history: Current every day smoker Have you smoked in the past 12 months: Yes Aproximately how many cigarettes per day: 7 - Alcohol/Substance Use Hx Alcohol Use: Yes Number of Drinks Daily: 10 - Social History Usual Living Arrangement: Yes: Alone Do you think of yourself as: Straight/Heterosexual ADL: Independent Occupation: unemployed History of Recent Travel: No Admission ROS S - HPI Allergies/Adverse Reactions: Allergies Allergy/AdvReac Type Severity Reaction Status Date / Time mayonnaise Allergy Verified 07/06/20 11:55 No Known Drug Allergies Allergy Verified 07/06/20 11:55 Seafood Allergy Uncoded 07/06/20 11:55 Exam Limitations: No Limitations - Ebola screening Have you traveled outside of the country in the last 21 days: No Have you had contact with anyone from an Ebola affected area: No Have you been sick,other than usual withdrawal symptoms: No Do you have a fever: No - Review of Systems Constitutional: Chills EENT: reports: No Symptoms Reported Respiratory: reports: No Symptoms reported Cardiac: reports: No Symptoms Reported GI: reports: No Symptoms Reported : reports: No Symptoms Reported Musculoskeletal: reports: No Symptoms Reported Integumentary: reports: No Symptoms Reported Neuro: reports: No Symptoms reported Endocrine: reports: No Symptoms Reported Hematology: reports: No Symptoms Reported Psychiatric: reports: Judgement Intact, Mood/Affect Appropiate, Orientated x3, Agitated, Anxious Other Systems: Reviewed and Negative Patient History - Patient Medical History Hx Asthma: Yes (ON MED) Hx Chronic Obstructive Pulmonary Disease (COPD): No Hx Cancer: No Hx Cardiac Disorders: Yes (IRREGULAR HR) Hx Congestive Heart Failure: No Hx Hypertension: Yes (ON MEDICATION, NON-COMPLIANT) Hx Hypercholesterolemia: No Hx Pacemaker: No HX Cerebrovascular Accident: No Hx Seizures: No Hx Dementia: No Hx Diabetes: No Hx Gastrointestinal Disorders: No Hx Liver Disease: Yes (has inflammed liver r/t alcohol use. ) Hx Genitourinary Disorders: No Hx Sexually Transmitted Disorders: No Hx Renal Disease (ESRD): No Hx Thyroid Disease: No Hx Human Immunodeficiency Virus (HIV): No Hx Hepatitis C: No Hx Depression: Yes (on meds. Denies suicide or violent ideation.) Hx Suicide Attempt: No Hx Bipolar Disorder: No Hx Schizophrenia: No - Patient Surgical History Past Surgical History: Yes Hx Neurologic Surgery: No Hx Cataract Extraction: No Hx Cardiac Surgery: No Hx Lung Surgery: No Hx Breast Surgery: No Hx Breast Biopsy: No Hx Abdominal Surgery: No Hx Appendectomy: No Hx Cholecystectomy: No Hx Genitourinary Surgery: No Hx Section: No Hx Orthopedic Surgery: Yes (Bone graft from (R) hip to (R) wrist) Anesthesia Reaction: Yes - PPD History Previous Implant?: Yes Documented Results: Negative w/o proof Implanted On Prior R Admission?: No PPD to be Administered?: Yes - Smoking Cessation Smoking history: Current every day smoker Have you smoked in the past 12 months: Yes Aproximately how many cigarettes per day: 7 Hx Chewing Tobacco Use: No Initiated information on smoking cessation: Yes 'Breaking Loose' booklet given: 07/06/20 - Substances abused Alcohol Substance route: Oral Frequency: Daily Amount used: 1PT VODKA/ 1.5 6PCK BEERS Age of first use: 12 Date of last use: 07/05/20 Admission Physical Exam S - Physical General Appearance: Yes: Nourished, Appropriately Dressed, Disheveled, Alcohol on Breath, Intoxicated, Tremorous, Irritable, Sweating, Anxious HEENTM: Yes: EOMI, Hearing grossly Normal, Normal ENT Inspection, Normocephalic, Normal Voice, MOHAN, Pharynx Normal, Tm's normal Respiratory: Yes: Chest Non-Tender, Lungs Clear, Normal Breath Sounds, No Respiratory Distress, No Accessory Muscle Use Neck: Yes: No masses,lesions,Nodules, Supple, Trachea in good position Breast: Yes: Within Normal Limits Cardiology: Yes: Regular Rhythm, Regular Rate, S1, S2 Abdominal: Yes: Normal Bowel Sounds, Non Tender, Soft Genitourinary: Yes: Within Normal Limits Back: Yes: Normal Inspection Musculoskeletal: Yes: full range of Motion, Gait Steady, Pelvis Stable Extremities: Yes: Normal Capillary Refill, Normal Inspection, Normal Range of Motion, Non-Tender, Other (left hand laceration old and healing by secondary intention) 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 intact, Fully Oriented, Alert, Motor Strength 5/5, Normal Mood/Affect, Normal Response Integumentary: Yes: Normal Color, Dry, Warm Lymphatic: Yes: Within Normal Limits - Diagnostic (1) Alcohol dependence with uncomplicated withdrawal Current Visit: Yes Status: Acute (2) Hypertension Current Visit: Yes Status: Acute Qualifiers: Hypertension type: essential hypertension Qualified Code(s): I10 - Essential (primary) hypertension (3) Nicotine dependence Current Visit: Yes Status: Acute Qualifiers: Nicotine product type: cigarettes Substance use status: in withdrawal Qualified Code(s): F17.213 - Nicotine dependence, cigarettes, with withdrawal (4) Asthma Current Visit: Yes Status: Chronic Qualifiers: Asthma severity: unspecified severity Asthma persistence: intermittent Asthma complication type: unspecified Qualified Code(s): J45.20 - Mild intermittent asthma, uncomplicated Cleared for Admission [facility] - Detox or Rehab [facility] Level of Care: Medically Managed Detox Regimen/Protocol: Librium Claeared for Rehab Admission: No Screened but not Admitted - Documentation of Visit Screened but not Admitted: No Breathalyzer - Breathalyzer Breathalyzer: 0.298 Vital Signs - Vital Signs Vital signs refused: No Temperature: 97.5 F Temperature source: Oral Pulse Rate: 103 Respiratory Rate: 19 Blood Pressure: 115/75 BP Location: Left Arm Blood Pressure position: Sitting - Height Height: 5 ft 8 in - Weight Weight: 145 lb Weight measurement method: Standing scale - BMI Body Mass Index (BMI): 22.0 - Bowel Function Bowel Movement: No Inpatient Rehab Admission - Rehab Decision to Admit Inpatient rehab admission?: No
[2020-07-06 13:09] VITALS: BMI 22.0
[2020-07-06] MEDS ORDERED: NICOTINE POLACRILEX 2 MG GUM BUC PRN (13:09)
[2020-07-06] MEDS ORDERED: MAGNESIUM HYDROX 2400MG/30ML ORAL SUSPENSION 30 ML CUP PO PRN (13:09)
[2020-07-06] MEDS ORDERED: MAG HYDROX/AL HYDROX/SIMETH 30 ML UNIT-DOSE CUP PO PRN (13:09)
[2020-07-06] MEDS ORDERED: ACETAMINOPHEN 325 MG TABLET (FP) PO PRN ×2 (13:09)
[2020-07-06] MEDS ORDERED: BISMUTH SUBSALICYLATE 262 MG/15 ML BTL PO PRN (13:09)
[2020-07-06] MEDS ORDERED: MENTHOL/PHENOL 1 EACH UD MM PRN (13:09)
[2020-07-06] MEDS ORDERED: MAGNESIUM CITRATE 300 ML BOTTLE PO PRN (13:09)
[2020-07-06] MEDS ORDERED: chlordiazePOXIDE HCL 25 MG CAPSULE PO PRN (13:09)
[2020-07-06] MEDS ORDERED: METHOCARBAMOL 500 MG TABLET PO PRN (13:09)
[2020-07-06] MEDS ORDERED: IBUPROFEN 400 MG TABLET (FP) PO PRN (13:09)
[2020-07-06] MEDS ORDERED: ONDANSETRON *ODT* 4 MG TABLET SL ONE (13:09)
[2020-07-06] MEDS ORDERED: PATIENT'S OWN MEDICATION (NON-FORMULARY) (Losartan/Hydrochlorothiazide [Losartan-Hctz 100- PO SCH (13:15)
[2020-07-06] MEDS ORDERED: hydrOXYzine PAMOATE 25 MG CAPSULE (FP) PO SCH (14:00)
[2020-07-06] MEDS: chlordiazePOXIDE HCL 25 MG CAPSULE PO SCH ×3 (14:44→22:56)
[2020-07-06] MEDS: NICOTINE 7 MG/24 HOURS TOPICAL PATCH TD SCH (14:47)
[2020-07-06] MEDS: PRENATAL VITAMINS W/ FOLIC ACID TABLET (FP) PO SCH (14:47)
[2020-07-06] MEDS: MOMETASONE FUROATE 220 MCG/IH INHALER IH SCH ×2 (14:48→14:50)
[2020-07-06] MEDS: LOSARTAN POTASSIUM 50 MG TABLET (FP) PO SCH (14:53)
[2020-07-06] MEDS: HYDROCHLOROTHIAZIDE 25 MG TABLET (FP) PO SCH (14:53)
[2020-07-06] MEDS ORDERED: hydrOXYzine PAMOATE 25 MG CAPSULE (FP) PO PRN (15:36)
[2020-07-06 17:03] LABS: HEMATOCRIT 34.5 % (35.4-49); HEMOGLOBIN 11.4 GM/dL (11.7-16.9); MCH 33.7 pg (25.7-33.7); MEAN PLT VOLUME 7.7 fl (7.5-11.1); PLATELET COUNT 128 K/MM3 (134-434); RBC 3.38 M/mm3 (4.00-5.60); RDW 15.1 % (11.9-15.9); WHITE BLOOD COUNT 4.3 K/mm3 (4.0-10.0)
[2020-07-06 17:14] LABS: BILIRUBIN,TOTAL 0.3 mg/dL (0.2-1); BLOOD UREA NITROGEN 4.1 mg/dL (7-18); CALCIUM 8.8 mg/dL (8.5-10.1); CREATININE 0.7 mg/dL (0.55-1.3); POTASSIUM 3.6 mmol/L (3.5-5.1); TOT PROT 7.9 g/dl (6.4-8.2)
[2020-07-06] MEDS ORDERED: BACITRACIN 0.9 GM PACKET TP SCH (22:00)
[2020-07-06] MEDS: BACITRACIN 0.9 GM PACKET TP SCH (22:55)
[2020-07-06] MEDS: MELATONIN 5 MG TABLETS PO SCH (22:56)
[2020-07-06] MEDS: MIRTAZAPINE 30 MG TABLET PO SCH (22:56)
[2020-07-06] MEDS: THIAMINE HCL 100 MG TABLET (FP) PO SCH (23:06)
[2020-07-07] MEDS: chlordiazePOXIDE HCL 25 MG CAPSULE PO SCH ×4 (05:33→22:52)
[2020-07-07] MEDS: NICOTINE 7 MG/24 HOURS TOPICAL PATCH TD SCH (11:04)
[2020-07-07] MEDS: MOMETASONE FUROATE 220 MCG/IH INHALER IH SCH (11:05)
[2020-07-07] MEDS: PANTOPRAZOLE 40 MG TABLET PO SCH (11:08)
[2020-07-07] MEDS: PRENATAL VITAMINS W/ FOLIC ACID TABLET (FP) PO SCH (11:08)
[2020-07-07] MEDS: ASPIRIN COATED 81 MG TABLET.EC PO SCH (11:09)
[2020-07-07] MEDS: amLODIPine BESYLATE 10 MG TABLET (FP) PO SCH (11:12)
[2020-07-07] MEDS: LOSARTAN POTASSIUM 50 MG TABLET (FP) PO SCH (11:12)
[2020-07-07] MEDS: HYDROCHLOROTHIAZIDE 25 MG TABLET (FP) PO SCH (11:12)
[2020-07-07] MEDS: BACITRACIN 0.9 GM PACKET TP SCH ×2 (11:13→22:52)
--- NOTE | 2020-07-07 13:00 | PN ---
[facility] CIWA - CIWA Score Nausea/Vomitin-No Nausea/No Vomiting Muscle Tremors: 3 Anxiety: 2 Agitation: 1-Slight > Activity Paroxysmal Sweats: 2 Orientation: 0-Oriented Tacttile Disturbances: 0-None Auditory Disturbances: 2-Mild Harshness/Frighten Visual Disturbances: 0-None Headache: 0-None Present CIWA-Ar Total Score: 10 BHS Progress Note (SOAP) Subjective: Complaints of anxiety,tremors, sweats and noise sensitivity. Objective: 07/07/20 12:58 Vital Signs 07/07/20 07/07/20 07/07/20 05:30 09:32 12:54 Temperature 97.3 F L 97.1 F L 97.0 F L Pulse Rate 79 105 H 72 Respiratory 20 18 18 Rate Blood Pressure 128/71 127/67 126/67 O2 Sat by Pulse 99 99 Oximetry (%) Laboratory Last Values WBC 4.3 K/mm3 (4.0-10.0) 07/06/20 13:25 RBC 3.38 M/mm3 (4.00-5.60) L 07/06/20 13:25 Hgb 11.4 GM/dL (11.7-16.9) L 07/06/20 13:25 Hct 34.5 % (35.4-49) L 07/06/20 13:25 MCV 102.0 fl (80-96) H 07/06/20 13:25 MCH 33.7 pg (25.7-33.7) 07/06/20 13:25 MCHC 33.0 g/dl (32.0-35.9) 07/06/20 13:25 RDW 15.1 % (11.9-15.9) 07/06/20 13:25 Plt Count 128 K/MM3 (134-434) L D 07/06/20 13:25 MPV 7.7 fl (7.5-11.1) 07/06/20 13:25 Sodium 140 mmol/L (136-145) 07/06/20 13:25 Potassium 3.6 mmol/L (3.5-5.1) 07/06/20 13:25 Chloride 105 mmol/L (98-107) 07/06/20 13:25 Carbon Dioxide 27 mmol/L (21-32) 07/06/20 13:25 Anion Gap 8 MMOL/L (8-16) 07/06/20 13:25 BUN 4.1 mg/dL (7-18) L 07/06/20 13:25 Creatinine 0.7 mg/dL (0.55-1.3) 07/06/20 13:25 Est GFR (CKD-EPI)AfAm 123.13 07/06/20 13:25 Est GFR (CKD-EPI)NonAf 106.24 07/06/20 13:25 Random Glucose 84 mg/dL (74-106) 07/06/20 13:25 Calcium 8.8 mg/dL (8.5-10.1) 07/06/20 13:25 Total Bilirubin 0.3 mg/dL (0.2-1) 07/06/20 13:25 AST 81 U/L (15-37) H 07/06/20 13:25 ALT 51 U/L (13-61) 07/06/20 13:25 Alkaline Phosphatase 142 U/L (45-117) H 07/06/20 13:25 Total Protein 7.9 g/dl (6.4-8.2) 07/06/20 13:25 Albumin 4.0 g/dl (3.4-5.0) 07/06/20 13:25 Syphilis Serology Non-reactive (NONREACTIVE) 07/06/20 13:25 Labs noted. Assessment: 07/07/20 12:59 Alert and oriented x3, in no acute respiratory distress. Full ROM, ambulating in hallway without assistance. Skin warm to touch with no lesions noted. Withdrawal symptoms. Plan: Continue detox protocol.
[2020-07-07] MEDS: THIAMINE HCL 100 MG TABLET (FP) PO SCH (22:52)
[2020-07-07] MEDS: MELATONIN 5 MG TABLETS PO SCH (22:52)
[2020-07-07] MEDS: MIRTAZAPINE 30 MG TABLET PO SCH (22:52)
[2020-07-08] MEDS: chlordiazePOXIDE HCL 25 MG CAPSULE PO SCH ×4 (05:40→22:37)
[2020-07-08] MEDS: BACITRACIN 0.9 GM PACKET TP SCH ×2 (10:26→23:42)
[2020-07-08] MEDS: LOSARTAN POTASSIUM 50 MG TABLET (FP) PO SCH (10:26)
[2020-07-08] MEDS: PRENATAL VITAMINS W/ FOLIC ACID TABLET (FP) PO SCH (10:26)
[2020-07-08] MEDS: ASPIRIN COATED 81 MG TABLET.EC PO SCH (10:26)
[2020-07-08] MEDS: NICOTINE 7 MG/24 HOURS TOPICAL PATCH TD SCH (10:26)
[2020-07-08] MEDS: MOMETASONE FUROATE 220 MCG/IH INHALER IH SCH (10:27)
[2020-07-08] MEDS: amLODIPine BESYLATE 10 MG TABLET (FP) PO SCH (10:27)
[2020-07-08] MEDS: HYDROCHLOROTHIAZIDE 25 MG TABLET (FP) PO SCH (10:27)
[2020-07-08] MEDS: PANTOPRAZOLE 40 MG TABLET PO SCH (10:27)
--- NOTE | 2020-07-08 13:48 | PN ---
S CIWA - CIWA Score Nausea/Vomitin Muscle Tremors: 3 Anxiety: 3 Agitation: 1-Slight > Activity Paroxysmal Sweats: No Perspiration Orientation: 0-Oriented Tacttile Disturbances: 0-None Auditory Disturbances: 0-None Visual Disturbances: 0-None Headache: 2-Mild CIWA-Ar Total Score: 11 BHS Progress Note (SOAP) Subjective: PATIENT ADMITTED FOR ETOH WITHDRAWAL SX C/O HEADACHE, SHAKES, SWEATS, ANXIETY Objective: Laboratory Tests 07/06/20 07/06/20 07/06/20 13:25 13:25 13:25 WBC 4.3 RBC 3.38 L Hgb 11.4 L Hct 34.5 L MCV 102.0 H MCH 33.7 MCHC 33.0 RDW 15.1 Plt Count 128 L D MPV 7.7 Sodium 140 Potassium 3.6 Chloride 105 Carbon Dioxide 27 Anion Gap 8 BUN 4.1 L Creatinine 0.7 Est GFR (CKD-EPI)AfAm 123.13 Est GFR (CKD-EPI)NonAf 106.24 Random Glucose 84 Calcium 8.8 Total Bilirubin 0.3 AST 81 H ALT 51 Alkaline Phosphatase 142 H Total Protein 7.9 Albumin 4.0 Syphilis Serology Non-reactive Vital Signs Temperature 97.1 F L 07/08/20 08:51 Pulse Rate 87 07/08/20 08:51 Respiratory Rate 18 07/08/20 08:51 Blood Pressure 127/77 07/08/20 08:51 O2 Sat by Pulse Oximetry (%) 98 07/08/20 08:51 PE ALERT AND ORIENTED X 3 SKIN WARM AND DRY EOMS INTACT BL IN NAD EXT MILD TREMORS, AMB AD DORIAN ANXIOUS MILDLY RESTLESS Assessment: 07/08/20 13:47 ETOH WITHDRAWAL SX Plan: CONTINUE DETOX
[2020-07-08] MEDS: MIRTAZAPINE 30 MG TABLET PO SCH (22:37)
[2020-07-08] MEDS: THIAMINE HCL 100 MG TABLET (FP) PO SCH (22:37)
[2020-07-08] MEDS: MELATONIN 5 MG TABLETS PO SCH (23:42)
[2020-07-09] MEDS ORDERED: chlordiazePOXIDE HCL 10 MG CAPSULE PO PRN
[2020-07-09] MEDS ORDERED: chlordiazePOXIDE HCL 10 MG CAPSULE PO SCH (05:00)
--- NOTE | 2020-07-09 09:08 | PN ---
[facility] CIWA - CIWA Score Nausea/Vomitin-No Nausea/No Vomiting Muscle Tremors: 2 Anxiety: 1-Mildly Anxious Agitation: 0-Normal Activity Paroxysmal Sweats: No Perspiration Orientation: 0-Oriented Tacttile Disturbances: 0-None Auditory Disturbances: 0-None Visual Disturbances: 0-None Headache: 0-None Present CIWA-Ar Total Score: 3 BHS Progress Note (SOAP) Subjective: feeling better Objective: 07/09/20 09:07 Vital Signs Temperature 97.5 F L 07/08/20 21:12 Pulse Rate 127 H 07/09/20 07:53 Respiratory Rate 18 07/09/20 07:53 Blood Pressure 92/64 07/09/20 07:53 O2 Sat by Pulse Oximetry (%) 95 07/08/20 21:12 Laboratory Tests 07/06/20 07/06/20 07/06/20 13:25 13:25 13:25 WBC 4.3 RBC 3.38 L Hgb 11.4 L Hct 34.5 L MCV 102.0 H MCH 33.7 MCHC 33.0 RDW 15.1 Plt Count 128 L D MPV 7.7 Sodium 140 Potassium 3.6 Chloride 105 Carbon Dioxide 27 Anion Gap 8 BUN 4.1 L Creatinine 0.7 Est GFR (CKD-EPI)AfAm 123.13 Est GFR (CKD-EPI)NonAf 106.24 Random Glucose 84 Calcium 8.8 Total Bilirubin 0.3 AST 81 H ALT 51 Alkaline Phosphatase 142 H Total Protein 7.9 Albumin 4.0 Syphilis Serology Non-reactive aaox3 ambulating no acute distress lungs CTA Assessment: 07/09/20 09:08 no s/s of withdrawals noted Plan: d/c today
--- NOTE | 2020-07-09 09:12 | DS ---
[facility] Detox Discharge Summary Admission Date: 07/06/20 Discharge Date: 07/09/20 - History Present History: Alcohol Dependence - Physical Exam Results Vital Signs: Vital Signs Temperature 97.5 F L 07/08/20 21:12 Pulse Rate 127 H 07/09/20 07:53 Respiratory Rate 18 07/09/20 07:53 Blood Pressure 92/64 07/09/20 07:53 O2 Sat by Pulse Oximetry (%) 95 07/08/20 21:12 Pertinent Admission Physical Exam Findings: Vital Signs Temperature 97.5 F L 07/08/20 10:00 Pulse Rate 119 H 07/09/20 07:53 Respiratory Rate 18 07/09/20 07:53 Blood Pressure 101/57 07/09/20 07:53 O2 Sat by Pulse Oximetry (%) 95 07/08/20 21:12 Laboratory Tests 07/06/20 07/06/20 07/06/20 13:25 13:25 13:25 WBC 4.3 RBC 3.38 L Hgb 11.4 L Hct 34.5 L MCV 102.0 H MCH 33.7 MCHC 33.0 RDW 15.1 Plt Count 128 L D MPV 7.7 Sodium 140 Potassium 3.6 Chloride 105 Carbon Dioxide 27 Anion Gap 8 BUN 4.1 L Creatinine 0.7 Est GFR (CKD-EPI)AfAm 123.13 Est GFR (CKD-EPI)NonAf 106.24 Random Glucose 84 Calcium 8.8 Total Bilirubin 0.3 AST 81 H ALT 51 Alkaline Phosphatase 142 H Total Protein 7.9 Albumin 4.0 Syphilis Serology Non-reactive labs noted aaox3 ambulating no acute distress - Treatment Hospital Course: Detox Protocol Followed, Detoxed Safely, Responded well, Discharged Condition Good, Rehab Referral Accepted - Medication Discharge Medications: Ambulatory Orders Amlodipine Besylate 10 mg PO DAILY 05/23/18 Aspirin [Ecotrin] 81 mg PO DAILY 05/23/18 Gabapentin 300 mg PO TID 05/23/18 Ibuprofen 600 mg PO Q12H 05/23/18 Losartan/Hydrochlorothiazide [Losartan-Hctz 100-25 mg Tab] 1 tab PO DAILY 05/23/18 Mometasone Furoate [Asmanex 220Mcg -] 1 inh IH DAILY 05/23/18 Sulfamethoxazole/Trimethoprim [Sulfamethoxazole-Tmp Ds Tablet] 1 each PO BID 06/24/18 Mirtazapine 30 mg PO HS #30 tablet 05/24/18 Lactulose (Oral Use) [Cephulac -] 20 gm PO TID #30 udc 05/26/18 Cyclobenzaprine HCl [Flexeril -] 10 mg PO BID 07/06/20 Ferrous Sulfate [Feosol] 325 mg PO TID 07/06/20 Pantoprazole Sodium [Protonix] 40 mg PO DAILY 07/06/20 - Diagnosis (1) Alcohol dependence with uncomplicated withdrawal Current Visit: Yes Status: Chronic (2) Hypertension Current Visit: Yes Status: Chronic Qualifiers: Hypertension type: essential hypertension Qualified Code(s): I10 - Essential (primary) hypertension (3) Nicotine dependence Current Visit: Yes Status: Acute Qualifiers: Nicotine product type: cigarettes Substance use status: in withdrawal Qualified Code(s): F17.213 - Nicotine dependence, cigarettes, with withdrawal (4) Asthma Current Visit: Yes Status: Chronic Qualifiers: Asthma severity: unspecified severity Asthma persistence: intermittent Asthma complication type: unspecified Qualified Code(s): J45.20 - Mild intermittent asthma, uncomplicated (5) Abrasion of face and extremities Current Visit: No Status: Acute Qualifiers: Encounter type: subsequent encounter Laterality: unspecified laterality Qualified Code(s): S00.81XD - Abrasion of other part of head, subsequent encounter; S40.819D - Abrasion of unspecified upper arm, subsequent encounter; S80.819D - Abrasion, unspecified lower leg, subsequent encounter (6) Drug-induced mood disorder Current Visit: No Status: Acute (7) Unsteady gait Current Visit: No Status: Chronic - AMA Did Patient Leave Against Medical Advice: No
[2020-07-09] MEDS: BACITRACIN 0.9 GM PACKET TP SCH (10:29)
[2020-07-09] MEDS: MOMETASONE FUROATE 220 MCG/IH INHALER IH SCH (10:29)
[2020-07-09] MEDS: PANTOPRAZOLE 40 MG TABLET PO SCH (10:29)
[2020-07-09] MEDS: ASPIRIN COATED 81 MG TABLET.EC PO SCH (10:30)
[2020-07-09] MEDS: amLODIPine BESYLATE 10 MG TABLET (FP) PO SCH (10:31)
[2020-07-09] MEDS: LOSARTAN POTASSIUM 50 MG TABLET (FP) PO SCH (10:32)
[2020-07-09] MEDS: PRENATAL VITAMINS W/ FOLIC ACID TABLET (FP) PO SCH (10:33)
[2020-07-09] MEDS: NICOTINE 7 MG/24 HOURS TOPICAL PATCH TD SCH (10:33)
[2020-07-09] MEDS: HYDROCHLOROTHIAZIDE 25 MG TABLET (FP) PO SCH (10:33)
[2020-07-09 10:58] VITALS: BP 101/57; PULSE 119; TEMP 96.9
[2020-07-10] MEDS ORDERED: chlordiazePOXIDE HCL 10 MG CAPSULE PO SCH (05:00)
[2020-07-11] MEDS ORDERED: chlordiazePOXIDE HCL 10 MG CAPSULE PO ONE (05:00)
== END 2020-07-09 11:24 | disposition home or self-care (01) | DRG 775 ==
LOC: YASAS 10:20 → Y6N 13:33
PROVIDERS: ADMIT Allergy & Immunology; ATTEND Allergy & Immunology
PROC: HZ2ZZZZ Detoxification Services for Substance Abuse Treatment (ICD-10-PCS; principal; 2020-07-06)
DX: F10.230 Alcohol dependence with withdrawal, uncomplicated (principal); F10.220 Alcohol dependence with intoxication, uncomplicated; F17.213 Nicotine dependence, cigarettes, with withdrawal; F19.24 Other psychoactive substance dependence with psychoactive substance-induced mood disorder; I10 Essential (primary) hypertension; J45.20 Mild intermittent asthma, uncomplicated; R26.2 Difficulty in walking, not elsewhere classified; I49.9 Cardiac arrhythmia, unspecified; S00.81XD Abrasion of other part of head, subsequent encounter; S40.81 Abrasion of upper arm; S80.819D Abrasion, unspecified lower leg, subsequent encounter; X58.XXXD Exposure to other specified factors, subsequent encounter; Z91.013 Allergy to seafood; Z91.018 Allergy to other foods; Z91.14 Patient's other noncompliance with medication regimen
CPT/HCPCS: 36415; 80053; 85027; 86780; U0003